=== PATIENT | female | born 1950 | race African-American/Black ===

== ENCOUNTER 2018-02-02 07:45 | Emergency (ER) | payer MEDICARE, MEDICAID ==
[~2018-02-02] VITALS: Ht 154.9 cm; Wt 101.0 kg
[2018-02-02] MEDS ORDERED: BACL-141 MT (08:05)
[2018-02-02] MEDS ORDERED: ATOR40TA70 MT (08:05)
[2018-02-02] MEDS ORDERED: HYDR25TA MT (08:05)
[2018-02-02] MEDS ORDERED: AMLO10TA80 MT (08:05)
[2018-02-02 09:12] VITALS: BP 130/84
== END 2018-02-02 09:16 | disposition home or self-care (01) ==
LOC: ER 08:22
DX: T78.49XA Other allergy, initial encounter (principal); H02.844 Edema of left upper eyelid; X58.XXXA Exposure to other specified factors, initial encounter; I10 Essential (primary) hypertension; F17.200 Nicotine dependence, unspecified, uncomplicated; Z88.9 Allergy status to unspecified drugs, medicaments and biological substances; Z79.899 Other long term (current) drug therapy
CPT/HCPCS: 99283

== ENCOUNTER 2019-08-16 08:18 | Emergency (ER) | payer MEDICARE, MEDICAID ==
[~2019-08-16] VITALS: Ht 154.9 cm; Wt 95.0 kg
[~2019-08-16 08:18] MED LIST: AMLO10TA80 MT; ATOR40TA70 MT; BACL-141 MT; HYDR25TA MT
[2019-08-16] MEDS ORDERED: ACETAMINOPHEN 325MG TABLET PO STA (09:28)
[2019-08-16] MEDS ORDERED: VANCOMYCIN 1 G PREMIX 200 ML IV ONE (09:30)
[2019-08-16 10:24] LABS: HEMATOCRIT. 37.8 % (36.0-48.0); HEMOGLOBIN. 12.7 g/dL (12.0-16.0); MEAN CORPUSCULAR HEMOGLOBIN 29.5 pg (28.0-32.0); MEAN CORPUSCULAR VOLUME 87.5 fL (81.0-99.0); MEAN PLATELET VOLUME 8.4 fl (7.4-10.4); PLATELET 412 x1000/uL (130-400); RED BLOOD CELL COUNT 4.31 mill/uL (4.2-5.4); RED CELL DISTRIBUTION WIDTH 15.2 % (11.6-14.6)
[2019-08-16 10:32] LABS: PROTHROMBIN TIME 10.5 sec (9.6-11.0)
[2019-08-16 10:46] LABS: PLATELET ESTIMATE SLIGHTLY INCREASED
[2019-08-16 11:56] LABS: CHLORIDE 109 mEq/L (98-107)
[2019-08-16 12:07] VITALS: BP 100/67
== END 2019-08-16 12:22 | disposition home or self-care (01) ==
LOC: ER 08:37
DX: S68.111A Complete traumatic metacarpophalangeal amputation of left index finger, initial encounter (principal); I10 Essential (primary) hypertension; Z79.899 Other long term (current) drug therapy; X58.XXXA Exposure to other specified factors, initial encounter; Y93.89 Activity, other specified; Y92.89 Other specified places as the place of occurrence of the external cause; Y99.8 Other external cause status
CPT/HCPCS: 36415; 73130; 80053; 85025; 85610; 96365; 99284; J3370

== ENCOUNTER 2020-02-15 09:55 | Emergency (ER) | payer MEDICARE, MEDICAID ==
[~2020-02-15] VITALS: Ht 154.9 cm; Wt 105.0 kg
[2020-02-15] MEDS ORDERED: FUROSEMIDE 40MG/4ML VIAL IVP ONE (10:45)
[2020-02-15 11:20] LABS: BASOPHILS % 1.6 % (0.0-2.0); EOSINOPHILS % 3.1 % (0.0-5.0); HEMATOCRIT. 33.3 % (36.0-48.0); LYMPHOCYTES % 24.1 % (20.0-50.0); MEAN CORPUSCULAR HEMOGLOBIN 29.4 pg (28.0-32.0); MEAN CORPUSCULAR VOLUME 89.1 fL (81.0-99.0); MEAN PLATELET VOLUME 7.7 fl (7.4-10.4); MONOCYTES % 4.4 % (2.0-8.0); NEUTROPHILS % 66.8 % (40.0-76.0); PLATELET 413 x1000/uL (130-400); RED BLOOD CELL COUNT 3.74 mill/uL (4.2-5.4); RED CELL DISTRIBUTION WIDTH 14.7 % (11.6-14.6)
[2020-02-15 11:25] LABS: CHLORIDE 109 mEq/L (98-107)
[2020-02-15 11:28] LABS: PROTHROMBIN TIME 10.4 sec (9.6-11.0)
[2020-02-15 11:41] LABS: CLARITY URINE CLEAR (CLEAR); COLOR URINE YELLOW (YELLOW); KETONES URINE NEGATIVE (NEGATIVE); LEUKOCYTE ESTERASE URINE 3+ (NEGATIVE); NITRITE URINE POSITIVE (NEGATIVE); OCCULT BLOOD URINE NEGATIVE (NEGATIVE); PROTEIN URINE NEGATIVE (NEGATIVE); SPECIFIC GRAVITY URINE 1.017 (1.005-1.030); UROBILINOGEN URINE 0.2 E.U./dL (0.2-1.0)
[2020-02-15] MEDS ORDERED: CEFTRIAXONE 1 G PREMIX 50 ML IV ONE (11:45)
[2020-02-15] MEDS ORDERED: CLONIDINE 0.1MG TABLET PO PRN (17:15)
[2020-02-15] MEDS ORDERED: BACLOFEN 10MG TABLET PO PRN (17:15)
[2020-02-15] MEDS ORDERED: LORAZEPAM 0.5MG TABLET PO PRN (17:15)
[2020-02-15] MEDS ORDERED: DOCUSATE SODIUM 100MG CAPSULE PO PRN (17:15)
[2020-02-15] MEDS ORDERED: AMLODIPINE 10MG TABLET PO SCH (17:15)
[2020-02-15] MEDS ORDERED: ACETAMINOPHEN 325MG TABLET PO PRN ×2 (17:15)
[2020-02-15] MEDS ORDERED: HYDROCODONE/ACETAMINOPHEN 5/325MG TABLET PO PRN (17:15)
[2020-02-15] MEDS ORDERED: ATORVASTATIN CALCIUM 40MG TABLET PO SCH (17:15)
[2020-02-15] MEDS ORDERED: FUROSEMIDE 40MG/4ML VIAL IVP SCH (17:15)
[2020-02-15] MEDS ORDERED: IPRATROPIUM/ALBUTEROL 0.5-3(2.5)MG/3ML NEB HHN PRN (17:15)
[2020-02-15] MEDS ORDERED: ONDANSETRON HCL 4MG/2ML INJ IV PRN (17:15)
[2020-02-15 17:40] VITALS: BP 212/111
[2020-02-16 10:10] LABS: *BARBITURATES SCREEN URINE NEGATIVE (NEGATIVE)
[2020-02-16 10:11] LABS: *AMPHETAMINES SCREEN URINE NEGATIVE (NEGATIVE); *BENZODIAZEPINES SCREEN URINE NEGATIVE (NEGATIVE); *COCAINE SCREEN URINE NEGATIVE (NEGATIVE); METHADONE URINE SCREEN NEGATIVE (NEGATIVE); OPIATES URINE SCREEN NEGATIVE (NEGATIVE); PHENCYCLIDINE URINE SCREEN NEGATIVE (NEGATIVE)
[2020-02-16 10:12] LABS: CANNABINOID URINE SCREEN NEGATIVE (NEGATIVE)
== END 2020-02-15 17:44 | disposition left against medical advice (07) ==
LOC: ER 09:55 → EDBEDREQ 13:15 → EDBEDREQTM 13:15 → CANBEDREQ 17:43 → ER 17:44
DX: R22.43 Localized swelling, mass and lump, lower limb, bilateral (principal); I16.0 Hypertensive urgency; E78.00 Pure hypercholesterolemia, unspecified; D64.9 Anemia, unspecified; G72.89 Other specified myopathies; E66.9 Obesity, unspecified; J44.9 Chronic obstructive pulmonary disease, unspecified; G83.89 Other specified paralytic syndromes; F17.210 Nicotine dependence, cigarettes, uncomplicated; Z68.41 Body mass index [BMI] 40.0-44.9, adult; Z87.828 Personal history of other (healed) physical injury and trauma
CPT/HCPCS: 36415; 71045; 80053; 80305; 81003; 83880; 84484; 85025; 85610; 87077; 87086; 87186; 93005; 93970; 96365; 96375; 99285; 99406; J0696; J1940